=== PATIENT | female | born 2005 | race Two or more races ===

== ENCOUNTER 2023-10-15 21:47 | Emergency (ER) | payer MEDICAID ==
[~2023-10-15] VITALS: Ht 154.9 cm; Wt 84.9 kg
[2023-10-15 22:09] VITALS: BP 142/85; PULSE 89; RESP 16; TEMP 98.7; O2SAT 100
== END 2023-10-16 01:08 | disposition left against medical advice (07) ==
LOC: ER 21:49
DX: R51.9 Headache, unspecified (principal); R11.0 Nausea; R05.9 Cough, unspecified; Z53.21 Procedure and treatment not carried out due to patient leaving prior to being seen by health care provider